=== PATIENT | male | born 2000 | race Caucasian/White ===

== ENCOUNTER 2018-08-12 17:02 | Emergency (ER) | payer OTHER ==
[2018-08-12 17:14] VITALS: BP 123/70; PULSE 79; RESP 16; TEMP 97.2; O2SAT 97
[2018-08-12] MEDS ORDERED: ACETAMINOPHEN 500 MG 500 MG TAB PO ONE (17:25)
[2018-08-12] MEDS ORDERED: KETOROLAC TROMETHAMINE 30 MG/ML SOL IM ONE (17:25)
[2018-08-12] MEDS ORDERED: KETOROLAC TROMETHAMINE 30 MG/ML SOL ONE (17:40)
[2018-08-12] MEDS ORDERED: ACETAMINOPHEN 500 MG 500 MG TAB ONE (17:41)
== END 2018-08-12 18:35 | disposition home or self-care (01) ==
LOC: ED 17:02
DX: S00.83XA Contusion of other part of head, initial encounter (principal)
CPT/HCPCS: 70450; 70486; 96372; 99282; 99283; J1885

== ENCOUNTER 2018-12-28 05:44 | Emergency (ER) | payer OTHER ==
[2018-12-28 05:52] VITALS: TEMP 97
[2018-12-28] MEDS ORDERED: KETOROLAC TROMETHAMINE 30 MG/ML SOL IV ONE (06:17)
[2018-12-28] MEDS ORDERED: KETOROLAC TROMETHAMINE 30 MG/ML SOL ONE (06:24)
[2018-12-28 06:38] LABS: BASOPHILS % (AUTO) 0 % (0-3); EOSINOPHILS % (AUTO) 0 % (0-9); HEMATOCRIT 46 % (39-53); HEMOGLOBIN 15.3 gm/dl (13.5-17.7); LYMPHOCYTES % (AUTO) 7.7 % (10-50); MEAN CORPUSCULAR HEMOGLOBIN 29.5 pg (27.0-32.0); MEAN CORPUSCULAR HGB CONC 33.3 gm/dl (32.0-36.0); MEAN CORPUSCULAR VOLUME 88 fL (80-100); MONOCYTES % (AUTO) 8.8 % (0-12)
[2018-12-28 06:41] LABS: ALBUMIN 4.3 gm/dl (3.4-5.0); BILIRUBIN,TOTAL 1.1 mg/dl (0.2-1.0); CALCIUM 9.1 mg/dl (8.5-10.1); CARBON DIOXIDE 27.6 mEq/L (21-32); CREATININE 0.98 mg/dl (0.80-1.30); POTASSIUM 4.3 mMol/L (3.5-5.1); TOTAL PROTEIN 8.4 gm/dl (6.4-8.2)
[2018-12-28 06:52] VITALS: BP 114/75; PULSE 32; RESP 18; O2SAT 99
[2018-12-28] MEDS ORDERED: SODIUM CHLORIDE 0.9% 1000ML 1,000 ML IV NR ×2 (07:45)
[2018-12-28] MEDS ORDERED: SODIUM CHLORIDE 0.9% 1000ML 1,000 ML IV ONE (07:47)
[2018-12-28] MEDS ORDERED: MAGNESIUM CITRATE SOL PO PRN (07:48)
[2018-12-28] MEDS ORDERED: MAGNESIUM CITRATE SOL ONE (07:50)
[2018-12-28 07:53] LABS: INR 1.02 (0.86-1.12)
== END 2018-12-28 08:53 | disposition home or self-care (01) | DRG 392 ==
LOC: ED 05:44
DX: K59.01 Slow transit constipation (principal)
CPT/HCPCS: 74019; 80053; 85025; 85610; 96365; 96374; 99283; 99284; J1885; A9270-GY